=== PATIENT | male | born 1965 | race Two or more races ===

== ENCOUNTER 2024-08-17 08:44 | Emergency (ER) | payer MEDICARE, OTHER, SELFPAY ==
[2024-08-17 08:57] VITALS: BP 143/88
--- NOTE | 2024-08-17 09:32 | ED.GENMED ---
History of Present Illness
General
Chief Complaint: Abdominal Pain
Time Seen by Provider: 08/17/24 09:32
History of Present Illness
History of Present Illness:
TIME OF INITIAL ENCOUNTER: 9:40 AM
HPI: Patient presents due to left lower quadrant pain. He noticed a bulging sensation especially when he coughs or passes gas. He has a history of a umbilical hernia repair in [place] approximately 15 years ago. He has no vomiting or diarrhea.
EXAM:
GENERAL: Well appearing in no distress
HEENT: Moist oral mucosa
CARDIOVASCULAR: No murmurs, normal heart rate, regular rhythm, No chest wall tenderness
PULMONARY: No respiratory distress, breath sounds are clear and equal
ABDOMEN: Soft with no peritoneal signs, no tenderness, no definite palpable hernia of the abdominal wall, no inguinal hernias palp
NEUROLOGIC: Excellent strength all extremities, no coordination deficits
PSYCHIATRIC: Appropriate mental status, normal insight and judgement
EXTREMITIES: Nontender, no edema, moves all extremities equally
SKIN: No rash, no lesions
NUMBER AND COMPLEXITY OF PROBLEMS ADDRESSED AT THE ENCOUNTER
� Chronic conditions affecting care: Has had appendectomy, hyperlipidemia
� Acute Exacerbation and/or Progression of Chronic Illness: This is an acute problem
� Differential Diagnosis includes: Abdominal wall hernia, incarcerated hernia unlikely based on physical examination, mesenteric adenitis, diverticulitis
AMOUNT AND/OR COMPLEXITY OF DATA TO BE REVIEWED AND ANALYZED
� I performed an independent evaluation of and my interpretation is:
EKG:
CT: CT of the abdomen pelvis shows no acute abnormality
X-rays:
Laboratory Studies: White count and hemoglobin are normal, chemistries unremarkable
Other:
� Review of other/old records: The patient had a CAT scan in 2019 which was unremarkable at that time
� Clinical information was obtained by an independent historian: None needed
� Prescriptions/Medications Considered but not given: The patient appears comfortable�did not give any analgesia
� Further testing considered but not performed:
RISK OF COMPLICATIONS AND/OR MORBIDITY OR MORTALITY OF PATIENT MANAGEMENT
� Social determinants of health affecting care: Lives at home
� Discussion with other providers:
� Escalation of care including admission/observation vs risk of discharge considered: The patient's ED workup is unremarkable. He appears very comfortable at time of discharge. I have given the contact information for local
general surgeon to follow-up with if needed however there is no clear sign of hernia on exam today. We talked about the possibility of an abdominal wall strain and he can try NSAIDs.
ANY OTHER UPDATES:
Past History
Past History
ED Past Medical History: Other (chronic back pain)
ED Past Surgical History: Appendectomy
Social History
Alcohol: Occasional
Drug: None
Personal: Single
Living: alone
Employment: Employed
Family History
Family History: Other (Noncontributory)
Phy Exam
Physical Exam
Physical Exam:
See HPI
Course
Orders/Labs/Results
Orders:
Orders
08/17/24 09:42
CT Abd/pelvis W Iv Cont Urgent
Comment:
Reason For Exam: h/o umbilical hernia repair [place]; LLQ pain ?herni
08/17/24 09:50
Basic Metabolic Panel Urgent
Complete Blood Count/With Diff Urgent
08/17/24 10:48
Urinalysis Reflex To Culture Urgent
Date Specimen was Collected: 08/17/24
Time Specimen was Collected: 10:48
Abnormal Lab Results
08/17/24
09:50
Abs Immat Gran (auto) 0.1 H 10^3/uL
(0-0.05)
Absolute Lymphs (auto) 4.2 H 10^3/uL
(1.2-3.4)
Immature Gran % 1.4 H %
(0-0.5)
Glucose 111 H mg/dl
(70-99)
08/17/24 09:50
08/17/24 09:50
Vital Signs
Initial and Last Documented VS:
Initial Vital Signs
Temp Pulse Resp BP Pulse Ox
36.8 C 81 18 143/88 100
08/17/24 08:57 08/17/24 08:57 08/17/24 08:57 08/17/24 08:57 08/17/24 08:57
Last Documented Vital Signs
Temp Pulse Resp BP Pulse Ox
36.8 C 81 18 143/88 100
08/17/24 08:57 08/17/24 08:57 08/17/24 08:57 08/17/24 08:57 08/17/24 08:57
*Critical Care Note
Total Time (30-74mins, 75-104mins- exclusive of procedures): Not Applicable
ED Attending Note
-
Portions of this chart may have been created with voice recognition software.� Occasional wrong word or��sound alike� substitutions may have occurred due to the inherent limitations of voice recognition software.
Discharge Plan
Departure
Patient Disposition: Home (Routine Discharge)
Date of Disposition: 08/17/24
Time of Disposition: 11:21
Patient with high blood pressure during this ER visit?: Yes
Discharge Problem:
Abdominal pain
Instructions: Abdominal Pain
Prescriptions:
No Action
pseudoephedrine-ibuprofen 1 TAB tablet
1 tab PO PRN (Reason: sinus/cold)
Dulcolax:
1 tab PO PRN (Reason: constipation)
hydrocodone-acetaminophen 5 MG/500 MG tablet
1 - 2 tab PO Q4HPRN PRN (Reason: PAIN) Qty: 20 0RF
Referrals:
[facility] MD [Active] - Follow up in 2-3 days
Yousif Humphrey DO [Family Provider] -
Activity Restrictions/Additional Instructions:
The cause of your pain is unclear. Your basic blood work is normal. Your white blood cell count is normal. Basic chemistry levels are normal. The CAT scan did not show any acute abnormality or cause for your symptoms. It is possible that your
symptoms could be related to a muscle strain of the abdominal wall. If you have ongoing concerns for the possibility of hernia, you could follow-up with a surgeon however there was no abnormality consistent with hernia seen on today's CAT scan.
Interventions
Interventions:
*Risk Screen - Suicide Last Done: 08/17/24 08:57
*General Assessment Last Done: 08/17/24 08:57
*Neglect/Abuse Screening Last Done: 08/17/24 08:57
*ED COVID-19 Vaccine History Last Done: 08/17/24 08:57
LA-Jhnkzf-Pjfhfiysai Assessment Last Done: 08/17/24 10:50
Discharge Date and Time
Print Language: MOLDOVAN
[2024-08-17 09:47] VITALS: BMI 31.7
[2024-08-17 10:01] LABS: % Basophils 0.4 % (0-2); % Eosinophils 0.6 % (0-6); % Immature Granulocytes 1.4 % (0-0.5); % Lymphocytes 49.2 % (20.5-51.1); % Neutrophils 42.4 % (42.2-75.2); Absolute Eosinophils 0.1 10^3/uL (0-0.7); Absolute Immature Granulocytes 0.1 10^3/uL (0-0.05); Absolute Lymphocytes 4.2 10^3/uL (1.2-3.4); Absolute Monocytes 0.5 10^3/uL (0.1-0.6); Absolute Neutrophils 3.6 10^3/uL (1.4-6.5); Hematocrit 43.7 % (39.0-52.0); Hemoglobin 14.5 g/dL (13.0-18.0); Mean Corp Hgb Conc. 33.2 g/dL (33.0-37.0); Mean Corpuscular Hgb 28.5 pg (27.0-31.0); Mean Platelet Volume 9.1 fL (7.4-10.4); Nucleated Red Blood Cells % 0 % (-); Platelet Count 315 10^3/uL (130-400); Red Blood Cell Count 5.08 10^6/uL (4.70-6.10); Red Cell Dist. Width 13.4 % (11.5-14.5); White Blood Cell Count 8.5 10^3/uL (4.8-10.8)
[2024-08-17 10:12] LABS: Blood Urea Nitrogen 14 mg/dl (9-20); Calcium 9.1 mg/dl (8.4-10.2); Carbon Dioxide 25 mmol/L (22-30); Chloride 104 mmol/L (98-107); Estimated Creatinine Clearance 116 ml/min; Glucose 111 mg/dl (70-99); Potassium 4.4 mmol/L (3.5-5.1); Sodium 138 mmol/L (135-145); eGFR > 60.00
[2024-08-17 11:49] LABS: Urine Albumin Negative (Neg - Trace); Urine Bilirubin Negative (Negative); Urine Character Clear (Clear); Urine Color Yellow; Urine Glucose Negative (Negative); Urine Ketone Negative (Negative); Urine Leukocyte Negative (Negative); Urine Nitrite Negative (Negative); Urine Occult Blood Negative (Negative); Urine Urobilinogen Negative (Neg - 1+)
== END 2024-08-17 11:42 | disposition home or self-care (01) ==
LOC: EMR 08:44
PROVIDERS: EMERGENCY PHYSICIAN Emergency Medicine; FAMILY PHYSICIAN Family Medicine
DX: R10.32 Left lower quadrant pain (principal); M54.9 Dorsalgia, unspecified; R03.0 Elevated blood-pressure reading, without diagnosis of hypertension; G89.29 Other chronic pain; E78.5 Hyperlipidemia, unspecified
CPT/HCPCS: 99284; 74177; 80048; 81003; 85025; Q9967